=== PATIENT | male | born 1985 | race Caucasian/White ===

== ENCOUNTER 2017-12-31 07:03 | Emergency (ER) | payer OTHER ==
[~2017-12-31] VITALS: Ht 177.8 cm; Wt 79.4 kg
[~2017-12-31 07:03] MED LIST: CEPH500 PO; CRUTCH3 USE; CRUTCH4 USE; Crutch1 EACH MISC; DOCU100 PO; FLUO10 PO; HEMOTO PR; HYDACE5 PO; IBUP800 PO; NAPR500 PO; Naprosyn500 MG PO; PRAHYD1AE TOP; Permethrin60 GM TP; SULTRIDS PO; TRAM50 PO
[2017-12-31] MEDS ORDERED: LISINOPRIL PO (07:26)
[2017-12-31] MEDS ORDERED: PSEU120ER PO (08:19)
[2017-12-31] MEDS ORDERED: Amoxicillin500 MG PO (08:19)
[2017-12-31] MEDS ORDERED: IBUP800 PO (08:19)
== END 2017-12-31 08:40 | disposition home or self-care (01) ==
LOC: ER 07:03
DX: H66.91 Otitis media, unspecified, right ear (principal); I10 Essential (primary) hypertension; F17.210 Nicotine dependence, cigarettes, uncomplicated; Z79.899 Other long term (current) drug therapy; Z79.2 Long term (current) use of antibiotics
CPT/HCPCS: 99283

== ENCOUNTER → 2019-01-27 | Outpatient (CLI) | payer OTHER ==
[~2019-01-27] MED LIST changes: +AMLO5 PO; +Amoxicillin500 MG PO; +HEARTBURN RELI150 M1 PO; +LISINOPRIL PO; +PSEU120ER PO
== END | disposition home or self-care (01) ==
LOC: PLD 13:32 → LAB SHORT 13:32
DX: D22.4 Melanocytic nevi of scalp and neck (principal); D22.62 Melanocytic nevi of left upper limb, including shoulder
CPT/HCPCS: 88305

== ENCOUNTER 2019-03-23 12:06 | Emergency (ER) | payer OTHER ==
[~2019-03-23] VITALS: Ht 177.8 cm; Wt 86.2 kg
[2019-03-23] MEDS ORDERED: LISI20 PO (12:12)
== END 2019-03-23 12:57 | disposition home or self-care (01) ==
LOC: ER 12:06
DX: M25.562 Pain in left knee (principal); Z79.899 Other long term (current) drug therapy; F17.210 Nicotine dependence, cigarettes, uncomplicated
CPT/HCPCS: 29505; 99283-25

== ENCOUNTER 2021-11-28 20:34 | Emergency (ER) | payer OTHER ==
[~2021-11-28] VITALS: Ht 177.8 cm; Wt 81.7 kg
[~2021-11-28 20:34] MED LIST changes: +LISI20 PO
[2021-11-28] MEDS ORDERED: CEPH500 PO (23:10)
[2022-03-31] MEDS ORDERED: ZESTRIL40 M1 PO (17:52)
[2022-03-31] MEDS ORDERED: AMLO10 PO (17:52)
[2022-03-31] MEDS ORDERED: HYDPAM25 PO (17:53)
[2022-03-31] MEDS ORDERED: OMEP20ER PO (17:53)
[2022-03-31] MEDS ORDERED: FLUO10 PO (17:53)
== END 2021-11-28 23:24 | disposition home or self-care (01) ==
LOC: ER 20:34
DX: S60.552A Superficial foreign body of left hand, initial encounter (principal); F17.210 Nicotine dependence, cigarettes, uncomplicated; I10 Essential (primary) hypertension; Z79.899 Other long term (current) drug therapy; W45.0XXA Nail entering through skin, initial encounter
CPT/HCPCS: 73130; 90471; 90714; 99283-25; A9270

== ENCOUNTER 2022-09-26 18:04 | Emergency (ER) | payer OTHER ==
[~2022-09-26] VITALS: Ht 177.8 cm; Wt 81.7 kg
[~2022-09-26 18:04] MED LIST changes: +AMLO10 PO; +HYDPAM25 PO; +OMEP20ER PO; +ZESTRIL40 M1 PO
[2022-09-26 19:03] LABS: BASOPHILS ABSOLUTE AUTO 0.06 K/mm3 (0.00-0.23); BASOPHILS PERCENT AUTO 1 % (0-2); EOSINOPHILS ABSOLUTE AUTO 0.29 K/mm3 (0.00-0.68); EOSINOPHILS PERCENT AUTO 3 % (0-6); Hematocrit 41.3 % (37.0-53.0); Hemoglobin 14.4 g/dL (13.5-17.5); IMMATURE GRAN ABSOLUTE AUTO 0.08 K/mm3 (0.00-0.10); IMMATURE GRAN PERCENT AUTO 1 % (0-1); LYMPHOCYTES ABSOLUTE AUTO 3.63 K/mm3 (0.84-5.20); LYMPHOCYTES PERCENT AUTO 38 % (21-46); MONOCYTES ABSOLUTE AUTO 0.82 K/mm3 (0.16-1.47); MONOCYTES PERCENT AUTO 9 % (4-13); Mean Corpuscular HGB 31.5 pg (26.0-34.0); Mean Corpuscular HGB Conc 34.9 g/dL (31.5-36.5); Mean Corpuscular Volume 90 fL (80-100); NEUTROPHILS ABSOLUTE AUTO 4.75 K/mm3 (1.96-9.15); NEUTROPHILS PERCENT AUTO 49 % (41-73); Platelet Count 376 K/mm3 (150-400); RDW Standard Deviation 39.6 fL (35.1-46.3); Red Blood Cell Count 4.57 M/mm3 (4.30-5.90); White Blood Cell Count 9.63 K/mm3 (4.00-11.30)
[2022-09-26 19:21] LABS: Albumin, Blood 3.5 g/dL (3.4-5.0); Albumin/Globulin Ratio 0.9 (0.8-1.8); Bilirubin, Total 0.2 mg/dL (0.1-1.0); Bun/Creatinine Ratio 12.4 (12.0-20.0); Calcium, Blood 8.9 mg/dL (8.5-10.1); Creatinine, Blood 0.8 mg/dL (0.60-1.20); Globulin, Blood 3.8 g/dL (2.2-4.0); Potassium, Blood 3.5 mmol/L (3.5-5.5); Total Protein, Blood 7.3 g/dL (6.4-8.2)
[2022-09-26] MEDS ORDERED: ALBU2.5V5 INH (22:31)
[2022-09-26] MEDS ORDERED: SENN187 PO (22:31)
== END 2022-09-27 00:04 | disposition home or self-care (01) ==
LOC: ER 18:04
PROVIDERS: Physician Assistant
DX: R07.89 Other chest pain (principal); I10 Essential (primary) hypertension; F17.210 Nicotine dependence, cigarettes, uncomplicated; Z79.899 Other long term (current) drug therapy; Z88.8 Allergy status to other drugs, medicaments and biological substances
CPT/HCPCS: 36415; 71046; 80053; 83690; 84484; 85025; 93005; 93010; A9270; J1885

== ENCOUNTER 2023-05-09 14:57 | Emergency (ER) | payer OTHER ==
[~2023-05-09] VITALS: Ht 177.8 cm; Wt 95.7 kg
[~2023-05-09 14:57] MED LIST changes: +ALBU2.5V5 INH; +SENN187 PO
[2023-05-09 15:14] VITALS: BP 141/97
[2023-05-09] MEDS ORDERED: CEPH500 PO (16:16)
== END 2023-05-09 18:08 | disposition home or self-care (01) ==
LOC: ER 14:57
DX: S61.432A Puncture wound without foreign body of left hand, initial encounter (principal); W31.89XA Contact with other specified machinery, initial encounter; Z88.6 Allergy status to analgesic agent; Z79.899 Other long term (current) drug therapy; Z79.51 Long term (current) use of inhaled steroids; I10 Essential (primary) hypertension; F17.210 Nicotine dependence, cigarettes, uncomplicated
CPT/HCPCS: 73130; 99283-25

== ENCOUNTER 2023-06-21 10:15 | Emergency (ER) | payer OTHER ==
[~2023-06-21] VITALS: Ht 177.8 cm; Wt 95.2 kg
[2023-06-21 10:25] VITALS: BP 164/106
== END 2023-06-21 11:48 | disposition home or self-care (01) ==
LOC: ER 10:15
DX: S91.341A Puncture wound with foreign body, right foot, initial encounter (principal); S91.144A Puncture wound with foreign body of right lesser toe(s) without damage to nail, initial encounter; W34.010A Accidental discharge of airgun, initial encounter; Z88.6 Allergy status to analgesic agent; Z79.899 Other long term (current) drug therapy; I10 Essential (primary) hypertension; F17.210 Nicotine dependence, cigarettes, uncomplicated
CPT/HCPCS: 73630; 97597; 99283-25